=== PATIENT | female | born 1960 | race Caucasian/White ===

== ENCOUNTER → 2016-04-12 | Outpatient (CLI) | payer BC ==
[~2016-04-12] MED LIST: ADVIL200 MG; ASPIRIN LO-DOSE81 MG PO; BIPAP INH; DILAUDID2 MG PO; LEXAPRO20 MG PO; PAIN RELIEF650 MG PO; PLEXUS; PRAVACHOL40 MG PO; RESTASIS1 EACH OTIC; TUMS200 MG PO; VALIUM5 MG PO; XARELTO10 MG PO
== END | disposition disaster alternative care site (69) ==
LOC: GBCOE 08:36
DX: Z12.31 Encounter for screening mammogram for malignant neoplasm of breast (principal)
CPT/HCPCS: G0202